=== PATIENT | male | born 1985 | race American Indian/Alaskan Native ===

== ENCOUNTER 2020-09-27 06:38 | Emergency (ER) | payer SELFPAY ==
[2020-09-27 06:46] VITALS: BP 142/83
[2020-09-27] MEDS ORDERED: IBUPROFEN 600 MG TAB PO ONE (07:23)
[2020-09-27] MEDS ORDERED: NEOMY 3.5 MG/BACIT 400 UNITS/POLY B 5000 UNITS/GM OINT PACKET TP ONE (07:23)
--- NOTE | 2020-09-27 07:24 | Emergency Department Report ---
ED Lower Extremity HPI - General Chief Complaint: Extremity Injury, Lower Stated Complaint: POSS BROKEN TOE RT FOOT Time Seen by Provider: 09/27/20 07:12 Source: patient Mode of arrival: Ambulatory Limitations: No Limitations - History of Present Illness Initial Comments: 35-year-old male who reports a history of diabetes and currently in police custody presents to the ER today with complaints of right foot pain. Patient states that yesterday a shelf accidentally fell onto his right foot. He states that since then he has been having swelling to his right foot and increased pain and bruising. He also reports he wound between his second and third toe secondary to the shelf falling onto his foot. Patient states that the pain is worse on ambulation. He denies any numbness, tingling, or bleeding. He states that he did not take anything for pain. Police who is currently at bedside states that he was [facility] patient [facility] the [facility] this morning when he started complaining of foot pain and the nurse at the [facility]it[facility]iary recommended that he be brought to the ER to have it evaluated. MD Complaint: foot injury -: Sudden, days(s) (1) Injury: Foot: Right, Toes: Right Type of Injury: blunt, other (Patient states shelf accidentally fell onto his right foot ) - Related Data Previous Rx's Medication Instructions Recorded Last Taken Type Bacitracin Zinc/Polymyxin B 1 applic TP DAILY #30 gram 09/27/20 Unknown Rx [Double Antibiotic Ointment] Ibuprofen [Motrin] 400 mg PO Q8H PRN #30 tablet 09/27/20 Unknown Rx Allergies Allergy/AdvReac Type Severity Reaction Status Date / Time sulfamethoxazole Allergy Swelling Verified 09/27/20 06:46 [From Bactrim] trimethoprim [From Bactrim] Allergy Swelling Verified 09/27/20 06:46 ED Review of Systems ROS: Stated complaint: POSS BROKEN TOE RT FOOT Other details as noted in HPI Comment: All other systems reviewed and negative Constitutional: denies: chills, fever Eyes: denies: eye pain, eye discharge, vision change ENT: denies: ear pain, throat pain Respiratory: denies: cough, shortness of breath, SOB with exertion, SOB at rest, wheezing Cardiovascular: denies: chest pain, palpitations Endocrine: no symptoms reported Gastrointestinal: denies: abdominal pain, nausea, vomiting, diarrhea, constipation, hematemesis, melena, hematochezia Musculoskeletal: joint swelling, arthralgia Skin: other (Wound). denies: rash, lesions, change in color, change in hair/nails, pruritus Neurological: denies: headache, weakness, paresthesias, abnormal gait, vertigo Psychiatric: denies: anxiety, depression, auditory hallucinations, visual hallucinations, homicidal thoughts, suicidal thoughts Hematological/Lymphatic: denies: easy bleeding, easy bruising, swollen glands ED Past Medical Hx - Past Medical History Previous Medical History?: Yes Hx Asthma: Yes - Surgical History Past Surgical History?: No - Medications Home Medications: Home Medications Medication Instructions Recorded Confirmed Last Taken Type Bacitracin Zinc/Polymyxin B 1 applic TP DAILY #30 gram 09/27/20 Unknown Rx [Double Antibiotic Ointment] Ibuprofen [Motrin] 400 mg PO Q8H PRN #30 tablet 09/27/20 Unknown Rx ED Physical Exam - General Limitations: No Limitations General appearance: alert, in no apparent distress - Head Head exam: Present: atraumatic, normocephalic, normal inspection - Eye Eye exam: Present: normal appearance, PERRL, EOMI Pupils: Present: normal accommodation - ENT ENT exam: Present: normal exam, mucous membranes moist, TM's normal bilaterally - Neck Neck exam: Present: normal inspection, full ROM - Respiratory Respiratory exam: Present: normal lung sounds bilaterally. Absent: respiratory distress, wheezes, rales, rhonchi - Cardiovascular Cardiovascular Exam: Present: regular rate, normal rhythm, normal heart sounds - Expanded Lower Extremity Exam Right Foot/Toe exam: Present: tenderness (Moderate tenderness to palpation to the dorsal distal aspect of the right foot as well as tenderness diffusely to the toes especially the second and third), abrasion (There is a superficial abrasion in between the second and third toe which is very tender to palpate.). Absent: swelling, laceration, ecchymosis, deformity, crepidus, dislocation, amputation, puncture wound, foreign body, calcaneal tenderness, tenderness at base of 5th metatarsal, nail avulsion, subungual hematoma Neuro vascular tendon exam: Present: no vascular compromise. Absent: pulse deficit, motor deficit, sensory deficit, tendon deficit - Neurological Exam Neurological exam: Present: alert, oriented X3, CN II-XII intact - Psychiatric Psychiatric exam: Present: normal affect, normal mood ED Course Vital Signs 09/27/20 09/27/20 06:45 09:19 Temperature 98.7 F Pulse Rate 72 78 Respiratory 14 16 Rate Blood Pressure 142/83 O2 Sat by Pulse 98 98 Oximetry ED Lower Extremity MDM - Radiology Data Radiology results: report reviewed Patient: ELI KRAMER MR#: [id number] : 1985 Acct:[id number] Age/Sex: 35 / M ADM Date: 09/27/20 Loc: ED Attending Dr: Ordering Physician: GRAYSON SUGGS Date of Service: 09/27/20 Procedure(s): XR foot 2V RT Accession Number(s): [id number] cc: GRAYSON SUGGS Fluoro Time In Minutes: RIGHT FOOT 2 VIEW(S) INDICATION / CLINICAL INFORMATION: foot injury/pain COMPARISON: None available. FINDINGS: BONES / JOINT(S): No acute fracture or subluxation. There is mild degenerative change in the great toe MTP joint. There is subjective osteopenia. SOFT TISSUES: No significant abnormality. ADDITIONAL FINDINGS: None. Signer Name: Hayden Moya MD Signed: 09/27/2020 8:09 AM Workstation Name: [id number] Transcribed By: Dictated By: Hayden Moya MD Electronically Authenticated By: Hayden Moya MD Signed Date/Time: 09/27/20808 DD/ 6 TD/TT: - Medical Decision Making Xray of foot shows no acute fracture or dislocation. Suspect contusion. He does have abrasion b/w 2nd and 3rd toe but it does not appear to be infected at this time. Xray results and suspected dx discussed with patient. Discussed wound care with patient. He expressed understanding. Pt was [facility] to [facility]. Critical care attestation.: If time is entered above; I have spent that time in minutes in the direct care of this critically ill patient, excluding procedure time. ED Disposition Clinical Impression: Contusion, foot, Abrasion, toe w/o infection Disposition: - TO HOME OR SELFCARE Is pt being admited?: No Does the pt Need Aspirin: No Condition: Stable Instructions: Contusion, [id number], Crush Injury of the Foot, Abrasion, [id number], RICE Therapy for Routine Care of Injuries Additional Instructions: It is important that you keep the abrasion that is located between your toes clean with soap and water. Do not use peroxide or alcohol. Wash the areas briefly, dry well then apply antibiotic ointment to the area. Do this twice per day. Follow the RICE discharge instructions given to you for the next 3 to 4 days. Follow-up with the auto engine mechanic in 1 week if your symptoms persist. If the wound/abrasion appears to be infected with pus drainage increasing redness or pain return to the ER or follow-up with your primary care doctor. Prescriptions: Bacitracin Zinc/Polymyxin B [Double Antibiotic Ointment] 1 applic TP DAILY #30 gram Ibuprofen [Motrin] 400 mg PO Q8H PRN #30 tablet PRN Reason: pain Referrals: RATNA ROY MD [Staff Physician] - 7-10 days (Primary care physician ) FELECIA ONEILL DPM [Staff Physician] - 7-10 days ([employer]) Time of Disposition: 08:47
--- NOTE | 2020-09-27 08:13 | XRay Report ---
RIGHT FOOT 2 VIEW(S) INDICATION / CLINICAL INFORMATION: foot injury/pain COMPARISON: None available. FINDINGS: BONES / JOINT(S): No acute fracture or subluxation. There is mild degenerative change in the great to e MTP joint. There is subjective osteopenia. SOFT TISSUES: No significant abnormality. ADDITIONAL FINDINGS: None. Signer Name: Hayden Moya MD Signed: 09/27/2020 8:09 AM Workstation Name: [id number]
== END 2020-09-27 09:06 | disposition home or self-care (01) ==
LOC: ED 06:38
DX: S90.31XA Contusion of right foot, initial encounter (principal); S90.122A Contusion of left lesser toe(s) without damage to nail, initial encounter; J45.909 Unspecified asthma, uncomplicated; W20.8XXA Other cause of strike by thrown, projected or falling object, initial encounter; Y93.89 Activity, other specified; Y92.89 Other specified places as the place of occurrence of the external cause; Y99.8 Other external cause status
CPT/HCPCS: 73620; 99283; A6250